=== PATIENT | male | born 1960 | race Caucasian/White ===

== ENCOUNTER 2017-06-01 10:59 | Emergency (ER) | payer BC ==
[2016-09-25 09:26] VITALS: Ht 185.4 cm; Wt 163.3 kg
[~2017-06-01] VITALS: Ht 185.4 cm; Wt 163.3 kg
[~2017-06-01 10:59] MED LIST: ALBI30PE; ALBU2.5V36 NEB; AMLO-98 PO; AMLO-99; AMLO2.5T75 PO; AMOX1TAB9 PO; AZIT-1 PO; AZIT-18 PO; CANA100T; CEP500 PO; DEXL60CA6 PO; FURO-43 PO; GLIM2TAB43; GLIM4TAB49 PO; HYZAAR; INSU100C12 SQ; INSU100V24 SQ; KET10 PO; LANI SQ; LEVO-3 PO; LOR5 PO; LOR75 PO; LORA-809 PO; LOSA-54; LOSA100T62 PO; LOSA25TA51 PO; METF-407 PO; METXR500; METXR500 PO; NEBI10TA4 PO; NEBI20TA4 PO; NOVOLOG SQ; OLME1TAB63 PO; OLME40TA28 PO; ONDA4TAB PO; PER PO; PRED20TA6 PO; PROBIOTIC1 EACH PO; ROS4 PO; SITA100T9 PO; SITA1TAB13; [UNRECOGNIZED DRUG - CODE]
--- NOTE | 2017-06-01 11:08 | ER Report ---
History and Physical Time Seen By MD: 11:08 [facility] CHIEF COMPLAINT: Back pain HISTORY OF PRESENT ILLNESS: 57-year-old male patient presents to emergency room with complaint of back pain. Patient states that he was walking approximately one week ago, slipped on ice and fell backwards landing on his back. He states that he did not have any loss of consciousness, denies any headache. He states since then has been having significant amounts of pain on the left side of his back. States that the pain started to radiate around to the front. He denies having any shortness of breath. He states the pain is improved with anti- inflammatories, he denies any nausea, vomiting or diarrhea. He denies any saddle paresthesia or bowel or bladder dysfunction. REVIEW OF SYSTEMS: Respiratory: No cough, no dyspnea. Cardiovascular: No chest pain, no palpitations. Gastrointestinal: No vomiting, no abdominal pain. Musculoskeletal: As noted above Allergies: Coded Allergies: sitagliptin (Unverified Allergy, Unknown, 08/20/14) Home Meds Active Scripts Cyclobenzaprine Hcl (CYCLOBENZAPRINE HCL) 10 Mg Tablet, 5-10 MG PO TID Y for MUSCLE SPASMS, #30 TAB Prov:EVELIN FAUSTIN [facility] 06/01/17 Ketorolac Tromethamine (KETOROLAC TROMETHAMINE) 10 Mg Tab, 10 MG PO Q6H, #20 TAB Prov:EVELIN FAUSTIN [facility] 06/01/17 Albuterol Sulfate 0.083% (ALBUTEROL SULFATE 0.083%) 2.5 Mg/3 Ml Vial.neb, 2.5 MG NEB Q4HR Y for SHORTNESS OF BREATH for 30 Days, Prov:LUIS PLASENCIA MD 09/27/16 Reported Medications Potassium Chloride (POTASSIUM CHLORIDE) 8 Meq Capsule.er, 8 MEQ PO QDAY 06/01/17 Furosemide (LASIX) 40 Mg Tablet, 1 TAB PO Q8H, TAB 06/01/17 Nebivolol Hcl (BYSTOLIC) 20 Mg Tablet, 20 MG PO DAILY, 09/27/16 Olmesartan/Hydrochlorothiazide (BENICAR HCT 40-25 MG TABLET) 1 Each Tablet, 1 EACH PO DAILY, #90 09/27/16 Insulin Lispro (HUMALOG) 100 Unit/1 Ml Vial, SQ, VIAL Humalog per insulin pump. 09/25/16 Levothyroxine Sodium (LEVOTHYROXINE SODIUM) 100 Mcg Tablet, 100 MCG PO QDAY, TAB 09/24/16 Discontinued Scripts Prednisone (PREDNISONE) 20 Mg Tablet, 10-20 MG PO QDAY, #4 One pill a day for 3 days, then 1/2 pill a day for 2 days Prov:LUIS PLASENCIA MD 09/27/16 Loratadine/Pseudoephedrine (CLARITIN-D 12 HOUR TABLET) 1 Each Tab.er.12h, 1 EACH PO DAILY Y for nasal congestion, #14 Don't take if BP>140/90 Prov:LUIS PLASENCIA MD 09/27/16 Azithromycin (ZITHROMAX) 250 Mg Tablet, 1 TAB PO QDAY, #3 TAB Prov:LUIS PLASENCIA MD 09/27/16 Amoxicillin/Potassium Clav (AMOX TR-K CLV 875-125 MG TAB) 1 Each Tablet, 875 MG PO BIDBS, #14 Prov:LUIS PLASENCIA MD 09/27/16 Past Medical/Surgical History Patient has a past medical history of DVT, hypertension, pneumonia, reflux, cholecystitis, fatty liver, arthritis, back pain, diabetes, hypothyroidism. Patient has surgical history of cholecystectomy, right knee surgery, left knee surgery, left parietal gland, tonsillectomy. Patient has a family medical history of cancer, CAD, diabetes. Reviewed Nurses Notes: Yes Hx Smoking: No Smoking Status: Never Smoker Exposure to Second Hand Smoke?: Yes Hx Alcohol Use: No Constitutional Vital Sign - Last 24 Hours 06/01/17 06/01/17 06/01/17 06/01/17 10:59 11:04 11:05 11:13 Pulse ??? 55 Resp 20 B/P (MAP) 254/124 (167) 254/124 224/100 (141) Pulse Ox 85 O2 Delivery Room Air 06/01/17 06/01/17 06/01/17 06/01/17 11:14 11:29 11:44 11:49 Pulse 53 ? 52 Resp B/P (MAP) 197/96 (129) Pulse Ox 94 92 06/01/17 06/01/17 06/01/17 06/01/17 12:04 12:19 12:26 12:34 Pulse 47 47 49 Resp B/P (MAP) 193/112 (139) Pulse Ox 93 93 84 06/01/17 12:53 Temp 97.6 Physical Exam General Appearance: The patient is alert, has no immediate need for airway protection and no current signs of toxicity. Respiratory: Chest is non tender, lungs are clear to auscultation. Cardiac: regular rate and rhythm Gastrointestinal: Abdomen is soft and non tender, no masses, bowel sounds normal. Musculoskeletal: Neck: Neck is supple and non tender. Extremities have full range of motion and are non tender. Back: There is no bruising noted on the back, patient has tenderness to the paraspinal muscles to the left side of the thoracic spine. Skin: No rashes or lesions. DIFFERENTIAL DIAGNOSIS: After history and physical exam differential diagnosis was considered for back pain including but not limited to muscular pain, herniated disc, spine fracture, intra-abdominal causes and urinary tract infection. Medical Decision Making EKG/Imaging Imaging Exam type: LUMBAR SPINE 4 VIEWS History: fall with back pain Comparison: December 30, 2015. Findings: There are five nonrib-bearing lumbar-type vertebral bodies present. There is no evidence of acute fractures or subluxations in the lumbar spine. Anterior osteophytes are noted at L2-3, L3-4 and L4-5. There are mild hypertrophic changes facet joints bilaterally at L5-S1. Incidentally noted are vascular calcifications in the abdominal aorta. Surgical clips are present in the right upper quadrant of abdomen. IMPRESSION: 1. Spondylotic changes of the lumbar spine as described above although no evidence of acute fractures or subluxations Report Dictated By: Aishwarya Mcwilliams MD at 06/01/2017 12:14 PM Report E-Signed By: Aishwarya Mcwilliams MD at 06/01/2017 12:17 PM Exam type: THORACIC SPINE 3 VIEWS History: fall with back pain Comparison: None. Findings: There is no demonstration of acute fractures or subluxations in the thoracic spine. There are marginal osteophytes noted at multiple levels particularly prominent in the mid to lower thoracic spine. IMPRESSION: 1. Spondylotic changes of the thoracic spine although no gross evidence of acute fractures or subluxations. If symptoms persist MR or CT may be of value Report Dictated By: Aishwarya Mcwilliams MD at 06/01/2017 12:17 PM Report E-Signed By: Aishwarya Mcwilliams MD at 06/01/2017 12:21 PM ED Course/Re-evaluation ED Course Patient was admitted to exam room, history and physical were obtained. Differential diagnoses were considered. I examination patient had no tenderness to the lumbar spine, patient was more in the paraspinal muscles to the left of the thoracic spine. X-rays done of both thoracic and lumbar spines which were negative. Patient received a dose of Norflex here. The patient was admitted to the emergency room patient had blood pressure of 200/120. Blood pressure went down to 195/90. I believe that the patient was having pain that is causing the blood pressure to go up, as the patient is normally hypertensive. With improvement in the discomfort the blood pressure came down which reassures me. I would like him to follow-up with his primary care provider in the next week to discuss his blood pressure. Patient will be given a prescription for Toradol and Flexeril. Discusses patient who verbalized understanding and agreement. Decision to Disposition Date: Jun 01, 2017 Decision to Disposition Time: 12:43 Depart Departure Latest Vital Signs Vital Signs Date Time Temp Pulse Resp B/P (MAP) Pulse Ox O2 Delivery O2 Flow Rate FiO2 06/01/17 12:53 97.6 06/01/17 12:34 49 84 06/01/17 12:26 193/112 (139) 06/01/17 12:19 29 06/01/17 11:05 Room Air Impression: Primary Impression: Back muscle spasm Condition: Improved Disposition: HOME OR SELF-CARE Referrals: SHEELA ABERNATHY (PCP) New Scripts Cyclobenzaprine Hcl (CYCLOBENZAPRINE HCL) 10 Mg Tablet 5-10 MG PO TID Y for MUSCLE SPASMS, #30 TAB Prov: EVELIN FAUSTIN 06/01/17 Ketorolac Tromethamine (KETOROLAC TROMETHAMINE) 10 Mg Tab 10 MG PO Q6H, #20 TAB Prov: EVELIN FAUSTIN 06/01/17 Patient Instructions: Back Pain (ED) Additional Instructions: Limit activity by pain. You may apply heat to the back to help loosen the muscles. Return to the ER if condition worsens. Follow up with Sheela Abernathy in the next week to discuss your blood pressure. If there is no improvement in the back pain follow up with [facility], Dr. De La Garza, for evaluation. Stop taking the Benjamín while taking the Toradol. EVELIN FAUSTIN Jun 01, 2017 11:08
[2017-06-01] MEDS ORDERED: ORPHENADRINE CITR 100 MG TABSR PO ONE (11:15)
[2017-06-01] MEDS ORDERED: FURO40TA35 PO (11:42)
[2017-06-01] MEDS ORDERED: POTA8CAP9 PO (11:43)
--- NOTE | 2017-06-01 12:23 | RADIOLOGY IMAGING REPORT ---
[place] [facility] [place]IENT NAME: Julio C Madrid : 1960 MR: [id number] V: [id number] EXAM DATE: ORDERING PHYSICIAN: EVELIN FAUSTIN TECHNOLOGIST: Location: Patient: Juilo C Madrid : 1960 Visit/Account:[id number] Date of Sevice: 06/01/2017 Exam type: LUMBAR SPINE 4 VIEWS History: fall with back pain Comparison: December 30, 2015. Findings: There are five nonrib-bearing lumbar-type vertebral bodies present. There is no evidence of acute fr actures or subluxations in the lumbar spine. Anterior osteophytes are noted at L2-3, L3-4 and L4-5. There are mild hypertrophic changes facet joints bilaterally at L5-S1. Incidentally noted are vascu lar calcifications in the abdominal aorta. Surgical clips are present in the right upper quadrant of abdomen. IMPRESSION: 1. Spondylotic changes of the lumbar spine as described above although no evidence of acute fracture s or subluxations Report Dictated By: Aishwarya Mcwilliams MD at 06/01/2017 12:14 PM Report E-Signed By: Aishwarya Mcwilliams MD at 06/01/2017 12:17 PM WSN:[email or web address]
[2017-06-01 12:26] VITALS: BP 193/112
--- NOTE | 2017-06-01 12:26 | RADIOLOGY IMAGING REPORT ---
FACILITY: [facility] PATIENT NAME: Julio C Madrid : 1960 MR: [id number] V: [id number] EXAM DATE: ORDERING PHYSICIAN: EVELIN FAUSTIN TECHNOLOGIST: Location: [facility] - [place] Patient: Julio C Madrid : 1960 Visit/Account:[id number] Date of Sevice: 06/01/2017 Exam type: THORACIC SPINE 3 VIEWS History: fall with back pain Comparison: None. Findings: There is no demonstration of acute fractures or subluxations in the thoracic spine. There are margin al osteophytes noted at multiple levels particularly prominent in the mid to lower thoracic spine. IMPRESSION: 1. Spondylotic changes of the thoracic spine although no gross evidence of acute fractures or sublux ations. If symptoms persist MR or CT may be of value Report Dictated By: Aishwarya Mcwilliams MD at 06/01/2017 12:17 PM Report E-Signed By: Aishwarya Mcwilliams MD at 06/01/2017 12:21 PM WSN:[email or web address]
[2017-06-01] MEDS ORDERED: CYCL10TA29 PO (12:42)
[2017-06-01] MEDS ORDERED: KET10 PO (12:42)
== END 2017-06-01 12:56 | disposition home or self-care (01) ==
LOC: ER 11:06
DX: M62.830 Muscle spasm of back (principal)
CPT/HCPCS: 72072; 72120; 99283

== ENCOUNTER → 2017-07-16 | Outpatient (CLI) | payer BC ==
[2016-09-25 09:26] VITALS: BMI 47.5
[~2017-07-16] MED LIST changes: +CYCL10TA29 PO; +FURO40TA35 PO; +POTA8CAP9 PO
--- NOTE | 2017-07-16 23:25 | RADIOLOGY IMAGING REPORT ---
FACILITY: [facility] PATIENT NAME: Julio C Madrid : 1960 MR: [id number] V: [id number] EXAM DATE: ORDERING PHYSICIAN: MARIBEL CHANDLER TECHNOLOGIST: Location: [facility] Patient: Julio C Madrid : 1960 Visit/Account:[id number] Date of Sevice: 07/16/2017 Renal Doppler ultrasound History: Hypertension COMPARISON: None Findings: Per Stat DX, renal artery to aortic ratio greater than 3.5, peak systolic velocity greater than 180 c m/s, and acceleration time greater than 0.07 seconds is suggestive of renal artery stenosis. Exam is technically limited by body habitus. Right kidney: The right kidney measures 13.2 x 6.4 x 6.2 cm and is normal. Resistive index: Upper pole 0.74, midpole 0.74, lower pole 0.59 Proximal renal artery peak systolic velocity: 74 cm/s Mid renal artery peak systolic velocity: 89 cm/s Distal renal artery peak systolic velocity: 27 cm/s Renal artery to aorta ratio: 0.57 Left kidney: The left kidney measures 12.1 x 5.6 x 7 cm and is normal. Resistive index: Upper pole 0.75, midpole 0.74, lower pole 0.77. Proximal renal artery peak systolic velocity: 58 Mid renal artery peak systolic velocity: 54 Distal renal artery peak systolic velocity: 42 Renal artery to aorta ratio: 0.44 Impression: No apparent renal artery stenosis based on velocity criteria. Notably the exam was technically limite d by patient body habitus and portions of the renal arteries may not have been visualized. If there is high clinical concern for renal artery stenosis a CT or MR angiogram could be utilized fo r further evaluation. Report Dictated By: Wilber Montiel MD at 07/16/2017 11:12 PM Report E-Signed By: Wilber Montiel MD at 07/16/2017 11:22 PM WSN:[id number]
== END ==
LOC: US 01:31
PROVIDERS: ATTEND Nurse Practitioner Family
DX: E66.9 Obesity, unspecified (principal); I10 Essential (primary) hypertension
CPT/HCPCS: 93975

== ENCOUNTER → 2017-09-03 | Outpatient (CLI) | payer BC ==
[2016-09-25 09:26] VITALS: BMI 47.5
[2017-09-03 07:24] LABS: PLATELET COUNT, AUTOMATED 267 K/uL (150-450)
== END ==
LOC: LAB 07:03
PROVIDERS: ATTEND Nurse Practitioner Family
DX: E11.65 Type 2 diabetes mellitus with hyperglycemia (principal); I50.9 Heart failure, unspecified; R60.0 Localized edema; R60.1 Generalized edema; I10 Essential (primary) hypertension; R53.81 Other malaise
CPT/HCPCS: 36415; 82040; 82247; 82310; 82374; 82435; 82565; 82947; 83036; 83880; 84075; 84132; 84155; 84295; 84443; 84450; 84460; 84520; 85025

== ENCOUNTER → 2017-10-14 | Outpatient (CLI) | payer BC ==
[2016-09-25 09:26] VITALS: BMI 47.5
== END ==
LOC: LAB 10:24
PROVIDERS: ATTEND Nurse Practitioner Family
DX: R60.0 Localized edema (principal); I10 Essential (primary) hypertension
CPT/HCPCS: 36415; 82040; 82247; 82310; 82374; 82435; 82565; 82947; 84075; 84132; 84155; 84295; 84450; 84460; 84520

== ENCOUNTER → 2017-11-21 | Outpatient (CLI) | payer BC ==
[2016-09-25 09:26] VITALS: BMI 47.5
== END ==
LOC: LAB 15:15
PROVIDERS: ATTEND Nurse Practitioner Family
DX: I10 Essential (primary) hypertension (principal); J44.9 Chronic obstructive pulmonary disease, unspecified; E11.65 Type 2 diabetes mellitus with hyperglycemia; E06.3 Autoimmune thyroiditis; E66.01 Morbid (severe) obesity due to excess calories; R53.81 Other malaise; E87.8 Other disorders of electrolyte and fluid balance, not elsewhere classified
CPT/HCPCS: 36415; 82040; 82247; 82310; 82374; 82435; 82565; 82947; 83880; 84075; 84132; 84155; 84295; 84443; 84450; 84460; 84520; 85027

== ENCOUNTER 2018-01-21 14:50 | Inpatient (IN) | payer BC ==
[~2018-01-21] VITALS: Ht 185.4 cm; Wt 156.0 kg
--- NOTE | 2018-01-21 15:00 | ER Report ---
History and Physical Time Seen By MD: 14:59 HPI/ROS CHIEF COMPLAINT: Edema HISTORY OF PRESENT ILLNESS: 57-year-old male patient presents to emergency room with complaint of edema. Patient states that he has a history of edema. States he's been on Lasix orally for the past couple of years. He states that lately his fluid retention has been going up and down. He states that he has had significant edema for the last 2 weeks. He states that he's been using his Lasix , but states that he's had little to no effect. He denies having any shortness of breath, but states he is unable to lay down to sleep. He states that his been going on for the past 5 years. He denies having any fevers, chills, nausea , vomiting or diarrhea. Patient states she's been taking his medication as prescribed. Patient does have a history of diabetes and bilateral neuropathy. Patient had seen his primary care provider who referred him to the emergency room. REVIEW OF SYSTEMS: Respiratory: Patient has persistent cough, there is no pink frothy sputum. Cardiovascular: No chest pain, no palpitations. Gastrointestinal: No vomiting, no abdominal pain. Musculoskeletal: No back pain. Allergies: Coded Allergies: sitagliptin (Unverified Allergy, Unknown, 08/20/14) Home Meds Active Scripts Albuterol Sulfate 0.083% (ALBUTEROL SULFATE 0.083%) 2.5 Mg/3 Ml Vial.neb, 2.5 MG NEB Q4HR Y for SHORTNESS OF BREATH for 30 Days, Prov:LUIS PLASENCIA MD 09/27/16 Reported Medications Potassium Chloride (Potassium Chloride) 20 Meq Tablet.er, 20 MG PO DAILY 01/21/18 Metolazone (METOLAZONE) 2.5 Mg Tablet, 2.5 MG PO DAILY 01/21/18 Furosemide (LASIX) 40 Mg Tablet, 1 TAB PO Q8H, TAB 06/01/17 Nebivolol Hcl (BYSTOLIC) 20 Mg Tablet, 20 MG PO DAILY, 09/27/16 Insulin Lispro 100 Un/Ml Vial (HUMALOG 100 U/ML VIAL) 100 Unit/1 Ml Vial, SQ, VIAL Humalog per insulin pump. 09/25/16 Levothyroxine Sodium (LEVOTHYROXINE SODIUM) 100 Mcg Tablet, 100 MCG PO QDAY, TAB 09/24/16 Discontinued Reported Medications Potassium Chloride (POTASSIUM CHLORIDE) 8 Meq Capsule.er, 8 MEQ PO QDAY 06/01/17 Olmesartan/Hydrochlorothiazide (BENICAR HCT 40-25 MG TABLET) 1 Each Tablet, 1 EACH PO DAILY, #90 09/27/16 Discontinued Scripts Cyclobenzaprine Hcl (CYCLOBENZAPRINE HCL) 10 Mg Tablet, 5-10 MG PO TID Y for MUSCLE SPASMS, #30 TAB Prov:EVEILN FAUSTIN [facility] 06/01/17 Ketorolac Tromethamine (KETOROLAC TROMETHAMINE) 10 Mg Tab, 10 MG PO Q6H, #20 TAB Prov:EVELIN FAUSTIN [facility] 06/01/17 Past Medical/Surgical History Patient has a past medical history of hypertension, DVT, pneumonia, gastritis, reflux, cholecystitis, fatty liver disease, chronic kidney disease, arthritis, diabetes, hypothyroidism. Patient has surgical history of tonsillectomy, surgery on the left parietal gland, right knee surgery, left knee surgery, cholecystectomy. Patient has a family medical history of cancer, CAD, diabetes. Reviewed Nurses Notes: Yes Hx Smoking: No Smoking Status: Never Smoker Exposure to Second Hand Smoke?: Yes Hx Substance Use Disorder: No Hx Alcohol Use: No Constitutional Vital Sign - Last 24 Hours 01/21/18 01/21/18 01/21/18 01/21/18 14:56 14:59 15:05 15:20 Temp 98.7 Pulse 92 81 Resp 20 28 18 B/P (MAP) 220/107 (144) 220/107 Pulse Ox 93 93 96 01/21/18 01/21/18 01/21/18 01/21/18 15:50 16:05 16:20 16:34 Pulse 74 81 76 Resp 16 25 16 B/P (MAP) 211/112 (145) Pulse Ox 91 95 92 01/21/18 01/21/18 01/21/18 01/21/18 16:35 16:40 16:45 16:50 Pulse 86 76 69 72 Resp 24 13 30 35 01/21/18 01/21/18 16:55 16:57 Pulse 71 Resp 16 B/P (MAP) 204/97 (132) Physical Exam General Appearance: The patient is alert, has no immediate need for airway protection and no current signs of toxicity. Respiratory: Chest is non tender, lungs are clear to auscultation. Cardiac: regular rate and rhythm. Patient is very edematous, legs have 3+ pitting edema. Gastrointestinal: Abdomen is soft and non tender, no masses, bowel sounds normal. Musculoskeletal: Neck: Neck is supple and non tender. Extremities have full range of motion and are non tender. Skin: No rashes or lesions. DIFFERENTIAL DIAGNOSIS: After history and physical exam differential diagnosis was considered for congestive heart failure, renal disease, Medical Decision Making Data Points Result Diagram: 01/21/18 1504 01/21/18 1504 Laboratory Hematology Test 01/21/18 15:01 01/21/18 15:04 01/21/18 15:06 Red Blood Count 5.69 M/uL (4.00-5.60) Mean Corpuscular Volume 85.5 fL (80.0-96.0) Mean Corpuscular Hemoglobin 29.0 pg (26.0-33.0) Mean Corpuscular Hemoglobin Concent 33.9 g/dL (32.0-36.0) Red Cell Distribution Width 14.6 % (11.5-14.5) Mean Platelet Volume 8.6 fL (7.2-11.1) Neutrophils (%) (Auto) 68.0 % (39.4-72.5) Lymphocytes (%) (Auto) 20.7 % (17.6-49.6) Monocytes (%) (Auto) 7.7 % (4.1-12.4) Eosinophils (%) (Auto) 2.6 % (0.4-6.7) Basophils (%) (Auto) 1.0 % (0.3-1.4) Nucleated RBC Relative Count (auto) 0.0 /100WBC Neutrophils # (Auto) 6.7 K/uL (2.0-7.4) Lymphocytes # (Auto) 2.0 K/uL (1.3-3.6) Monocytes # (Auto) 0.8 K/uL (0.3-1.0) Eosinophils # (Auto) 0.3 K/uL (0.0-0.5) Basophils # (Auto) 0.1 K/uL (0.0-0.1) Nucleated RBC Absolute Count (auto) 0.00 K/uL Sodium Level 138 mmol/L (137-145) Potassium Level 3.7 mmol/L (3.5-5.0) Chloride Level 98 mmol/L (98-107) Carbon Dioxide Level 34 mmol/L (22-30) Blood Urea Nitrogen 33 mg/dl (9-21) Creatinine 1.80 mg/dl (0.66-1.25) Glomerular Filtration Rate Calc 39.4 Random Glucose 194 mg/dl (75-110) Calcium Level 8.4 mg/dl (8.4-10.2) Total Bilirubin 0.4 mg/dl (0.2-1.3) Aspartate Amino Transf (AST/SGOT) 20 U/L (0-35) Alanine Aminotransferase (ALT/SGPT) 20 U/L (0-56) Alkaline Phosphatase 73 U/L (0-126) Troponin I < 0.012 ng/ml B-Type Natriuretic Peptide 351 pg/ml (0-100) Total Protein 6.7 g/dl (6.3-8.2) Albumin 3.3 g/dl (3.5-5.0) Urine Color Straw Urine Clarity Clear Urine pH 7.0 pH (4.8-9.5) Urine Specific [place] 1.006 Urine Protein 100 mg/dL (NEGATIVE) Urine Glucose (UA) 150 mg/dL (NEGATIVE) Urine Ketones Negative mg/dL (NEGATIVE) Urine Blood Small (NEGATIVE) Urine Nitrite Negative (NEGATIVE) Urine Bilirubin Negative (NEGATIVE) Urine Urobilinogen Negative mg/dL (0.2-1.9) Urine Leukocyte Esterase Negative (NEGATIVE) Urine RBC 3 /HPF (0-2/HPF) Urine WBC <1 /HPF (0-5/HPF) Urine Squamous Epithelial Cells None /LPF (</=FEW) Urine Bacteria Negative /HPF (NONE-FEW) Urine Mucus None /HPF (NONE-FEW) Chemistry Test 01/21/18 15:01 01/21/18 15:04 01/21/18 15:06 White Blood Count 9.8 k/uL (4.5-11.0) Red Blood Count 5.69 M/uL (4.00-5.60) Hemoglobin 16.5 g/dL (14.0-18.0) Hematocrit 48.7 % (42.0-52.0) Mean Corpuscular Volume 85.5 fL (80.0-96.0) Mean Corpuscular Hemoglobin 29.0 pg (26.0-33.0) Mean Corpuscular Hemoglobin Concent 33.9 g/dL (32.0-36.0) Red Cell Distribution Width 14.6 % (11.5-14.5) Platelet Count 242 K/uL (150-450) Mean Platelet Volume 8.6 fL (7.2-11.1) Neutrophils (%) (Auto) 68.0 % (39.4-72.5) Lymphocytes (%) (Auto) 20.7 % (17.6-49.6) Monocytes (%) (Auto) 7.7 % (4.1-12.4) Eosinophils (%) (Auto) 2.6 % (0.4-6.7) Basophils (%) (Auto) 1.0 % (0.3-1.4) Nucleated RBC Relative Count (auto) 0.0 /100WBC Neutrophils # (Auto) 6.7 K/uL (2.0-7.4) Lymphocytes # (Auto) 2.0 K/uL (1.3-3.6) Monocytes # (Auto) 0.8 K/uL (0.3-1.0) Eosinophils # (Auto) 0.3 K/uL (0.0-0.5) Basophils # (Auto) 0.1 K/uL (0.0-0.1) Nucleated RBC Absolute Count (auto) 0.00 K/uL Glomerular Filtration Rate Calc 39.4 Calcium Level 8.4 mg/dl (8.4-10.2) Total Bilirubin 0.4 mg/dl (0.2-1.3) Aspartate Amino Transf (AST/SGOT) 20 U/L (0-35) Alanine Aminotransferase (ALT/SGPT) 20 U/L (0-56) Alkaline Phosphatase 73 U/L (0-126) Troponin I < 0.012 ng/ml B-Type Natriuretic Peptide 351 pg/ml (0-100) Total Protein 6.7 g/dl (6.3-8.2) Albumin 3.3 g/dl (3.5-5.0) Urine Color Straw Urine Clarity Clear Urine pH 7.0 pH (4.8-9.5) Urine Specific [place] 1.006 Urine Protein 100 mg/dL (NEGATIVE) Urine Glucose (UA) 150 mg/dL (NEGATIVE) Urine Ketones Negative mg/dL (NEGATIVE) Urine Blood Small (NEGATIVE) Urine Nitrite Negative (NEGATIVE) Urine Bilirubin Negative (NEGATIVE) Urine Urobilinogen Negative mg/dL (0.2-1.9) Urine Leukocyte Esterase Negative (NEGATIVE) Urine RBC 3 /HPF (0-2/HPF) Urine WBC <1 /HPF (0-5/HPF) Urine Squamous Epithelial Cells None /LPF (</=FEW) Urine Bacteria Negative /HPF (NONE-FEW) Urine Mucus None /HPF (NONE-FEW) Urinalysis Test 01/21/18 15:06 Urine Color Straw Urine Clarity Clear Urine pH 7.0 pH (4.8-9.5) Urine Specific [place] 1.006 Urine Protein 100 mg/dL (NEGATIVE) Urine Glucose (UA) 150 mg/dL (NEGATIVE) Urine Ketones Negative mg/dL (NEGATIVE) Urine Blood Small (NEGATIVE) Urine Nitrite Negative (NEGATIVE) Urine Bilirubin Negative (NEGATIVE) Urine Urobilinogen Negative mg/dL (0.2-1.9) Urine Leukocyte Esterase Negative (NEGATIVE) Urine RBC 3 /HPF (0-2/HPF) Urine WBC <1 /HPF (0-5/HPF) Urine Squamous Epithelial Cells None /LPF (</=FEW) Urine Bacteria Negative /HPF (NONE-FEW) Urine Mucus None /HPF (NONE-FEW) EKG/Imaging EKG Interpretation 12 lead EKG: Rhythm: normal sinus rhythm [place]: Left axis deviation QRS: Possible left ventricular hypertrophy ST segments: normal Imaging 2 VIEWS CHEST INDICATION: Cough and edema. COMPARISON: 09/24/2016. FINDINGS: Cardiomediastinal silhouette and pulmonary vessels within normal limits. The lungs volumes are mildly decreased causing mild accentuation to the interstitium. No focal areas of consolidation. There is no pneumothorax or pleural effusion. No nodule. Upper abdomen is unremarkable. No acute bony abnormality. IMPRESSION: 1. No acute cardiopulmonary process. Report Dictated By: Mahendra Anthony at 01/21/2018 4:00 PM Report E-Signed By: Mahendra Anthony at 01/21/2018 4:02 PM ED Course/Re-evaluation ED Course Patient was admitted to an exam room, history and physical were obtained. Differential diagnoses were considered. On examination lungs are clear, heart is regular, abdomen is distended and bowel sounds are active. Patient does have 3+ pitting edema to bilateral lower extremities. An IV was started, a CBC, CMP, urinalysis, EKG, chest x-ray, BNP were done. Labs were unremarkable, chest x- ray showed no acute findings, EKG was unremarkable. Patient did have a BNP of 354. That is elevated from the last time was checked, that time he was in the low 200s. Patient received 40 mg of Lasix IV here in the emergency room. I discussed options of going home and trying oral medications or admission. Patient states he is tired of fighting with the water retention would like to be admitted to have that removed. I discussed the case with Dr. Shepherd who did agree to accept the patient for admission. He requested we give him something for his blood pressure and 20 of labetalol was given. Patient will be admitted for CHF. Decision to Disposition Date: Jan 21, 2018 Decision to Disposition Time: 17:20 Depart Departure Latest Vital Signs Vital Signs Date Time Temp Pulse Resp B/P (MAP) Pulse Ox O2 Delivery O2 Flow Rate FiO2 01/21/18 16:57 204/97 (132) 01/21/18 16:55 71 16 01/21/18 16:20 92 01/21/18 14:59 98.7 Impression: Primary Impression: CHF (congestive heart failure) Additional Impression: Bilateral lower extremity edema Condition: Improved Disposition: Admitted from ER Referrals: MARIBEL CHANDLER (PCP) Problem Qualifiers Primary Impression: CHF (congestive heart failure) Heart failure type: unspecified Heart failure chronicity: acute on chronic Qualified Codes: I50.9 - Heart failure, unspecified EVELIN FAUSTIN Jan 21, 2018 14:59
[2018-01-21] MEDS ORDERED: METO2.5T15 PO (15:13)
[2018-01-21] MEDS ORDERED: POTA20TA10 PO (15:19)
[2018-01-21 15:23] LABS: PLATELET COUNT, AUTOMATED 242 K/uL (150-450)
[2018-01-21] MEDS ORDERED: FUROSEMIDE 40 MG/4 ML VIAL IVP ONE (16:05)
--- NOTE | 2018-01-21 16:06 | RADIOLOGY IMAGING REPORT ---
FACILITY: [facility] [place] PATIENT NAME: Julio C Madrid : 1960 MR: [id number] V: [id number] EXAM DATE: ORDERING PHYSICIAN: EVELIN FAUSTIN TECHNOLOGIST: Location: [facility] [place] Patient: Julio C Madrid : 1960 Visit/Account:[id number] Date of Sevice: 01/21/2018 2 VIEWS CHEST INDICATION: Cough and edema. COMPARISON: 09/24/2016. FINDINGS: Cardiomediastinal silhouette and pulmonary vessels within normal limits. The lungs volumes are mildly decreased causing mild accentuation to the interstitium. No focal areas of consolidation. There is no pneumothorax or pleural effusion. No nodule. Upper abdomen is unremarkable. No acute bony abnormality. IMPRESSION: 1. No acute cardiopulmonary process. Report Dictated By: Mahendra Anthony at 01/21/2018 4:00 PM Report E-Signed By: Mahendra Anthony at 01/21/2018 4:02 PM [id number]
--- NOTE | 2018-01-21 16:10 | EKG ---
FACILITY: PATIENT NAME: HUSSAIN PAULSON : [id number] MR: [id number] V: [id number] EXAM DATE: ORDERING PHYSICIAN: EVELIN FAUSTIN TECHNOLOGIST: BELLE Mitchell Reason : DYSPNEA Blood Pressure : / mmHG Vent. Rate : 092 BPM Atrial Rate : 092 BPM P-R Int : 186 ms QRS Dur : 102 ms QT Int : 388 ms P-R-T Axes : 070 -61 116 degrees QTc Int : 479 ms Normal sinus rhythm Possible Left atrial enlargement Left axis deviation Left ventricular hypertrophy T wave abnormality, consider lateral ischemia Prolonged QT Abnormal ECG When compared with ECG of 24-SEP-2016 23:55, No significant change was found Confirmed by Wenceslao Londono ([id number]) on 01/21/2018 5:33:36 PM Referred By: WES Confirmed By:Wenceslao Valera
[2018-01-21] MEDS ORDERED: LABETALOL HCL 100 MG/20ML VIAL IVP ONE (17:05)
[2018-01-21 17:35] VITALS: BP 192/98
[2018-01-21] MEDS ORDERED: ONDANSETRON 4 MG/2 ML VIAL IVP PRN (17:40)
[2018-01-21] MEDS ORDERED: hydrALAZINE HCL 20 MG/ML VIAL IVP PRN ×3 (17:40→20:40)
[2018-01-21] MEDS ORDERED: INFLUENZA VIRUS VAC 0.5 ML SYR IM ONLY ONE (17:40)
[2018-01-21] MEDS ORDERED: ACETAMINOPHEN 325 MG TAB PO PRN (17:40)
[2018-01-21] MEDS ORDERED: ALBUTEROL 2.5 MG/3 ML NEB NEB PRN (17:45)
[2018-01-21] MEDS ORDERED: INS HUM LISPRO 100U/ML (ER ONLY) 10 ML VIAL SQ PRN (17:45)
[2018-01-21 20:02] VITALS: BP 199/90
[2018-01-21] MEDS ORDERED: LABETALOL HCL 100 MG/20ML VIAL IVP PRN (20:40)
[2018-01-21] MEDS ORDERED: amLODIPine BESYL(*) 5 MG TAB PO SCH (21:00)
[2018-01-21] MEDS ORDERED: FUROSEMIDE 40 MG/4 ML VIAL IVP SCH ×2 (21:00)
--- NOTE | 2018-01-21 21:13 | History & Physical ---
History of Present Illness Chief Complaint Edema History of Present Illness 57M with PMHx HFpEF, DM, CKD presented with one month increased weight gain, edema. Noted it got worse over last week. No hospitalizations within last year but did have episode treated by PCP 2 months ago which needed increased diuretic. Denies fluid restriction, or action plan when weight is increased on daily weighing. Reports adherence to diuretic regimen, sodium restriction, daily weights. Per report sometimes urine output just drops despite taking Rx. Noted to have hypertensive urgency on admission and reports difficult to control BP. Denies CP, recent illness. Reports orthopnea, DIALLO, edema. History Problems: (1) CKD (chronic kidney disease) stage 3, GFR 30-59 ml/min (2) Type 2 diabetes mellitus, with long-term current use of insulin (3) Hypothyroidism Status: Chronic (4) HTN (hypertension) Status: Chronic Home Meds Active Scripts Albuterol Sulfate 0.083% (ALBUTEROL SULFATE 0.083%) 2.5 Mg/3 Ml Vial.neb, 2.5 MG NEB Q4HR Y for SHORTNESS OF BREATH for 30 Days, Prov:LUIS PLASENCIA MD 09/27/16 Reported Medications Potassium Chloride (Potassium Chloride) 20 Meq Tablet.er, 20 MG PO DAILY 01/21/18 Metolazone (METOLAZONE) 2.5 Mg Tablet, 2.5 MG PO DAILY 01/21/18 Furosemide (LASIX) 40 Mg Tablet, 1 TAB PO Q8H, TAB 06/01/17 Nebivolol Hcl (BYSTOLIC) 20 Mg Tablet, 20 MG PO DAILY, 09/27/16 Insulin Lispro 100 Un/Ml Vial (HUMALOG 100 U/ML VIAL) 100 Unit/1 Ml Vial, SQ, VIAL Humalog per insulin pump. 09/25/16 Levothyroxine Sodium (LEVOTHYROXINE SODIUM) 100 Mcg Tablet, 100 MCG PO QDAY, TAB 09/24/16 Discontinued Reported Medications Potassium Chloride (POTASSIUM CHLORIDE) 8 Meq Capsule.er, 8 MEQ PO QDAY 06/01/17 Olmesartan/Hydrochlorothiazide (BENICAR HCT 40-25 MG TABLET) 1 Each Tablet, 1 EACH PO DAILY, #90 09/27/16 Discontinued Scripts Cyclobenzaprine Hcl (CYCLOBENZAPRINE HCL) 10 Mg Tablet, 5-10 MG PO TID Y for MUSCLE SPASMS, #30 TAB Prov:EVELIN FAUSTIN [facility] 06/01/17 Ketorolac Tromethamine (KETOROLAC TROMETHAMINE) 10 Mg Tab, 10 MG PO Q6H, #20 TAB Prov:EVELIN FAUSTIN [facility] 06/01/17 Allergies: Coded Allergies: sitagliptin (Unverified Allergy, Unknown, 08/20/14) Patient History: FH: HTN (hypertension) Hx Smoking: No Smoking Status: Never Smoker Exposure to Second Hand Smoke?: Yes Caffeine Intake: Soda Caffeine/Cups Per Day: 1 SODA EVERY OTHER DAY Hx Alcohol Use: No Hx Substance Use Disorder: No Review of Systems All Systems Reviewed/Normal: Yes, Except as Noted Constitutional: Weight Gain Neurological: No Syncope, No Confusion Eyes: No Vision Change ENT: No Hearing Loss Cardiovascular: Other (orthopnea) Respiratory: Shortness of Breath Gastrointestinal: No Nausea, No Vomiting Genitourinary: No Dysuria Musculoskeletal: No Pain Psychiatric: No Depression Exam Vital Signs Vital Signs Date Time Temp Pulse Resp B/P (MAP) Pulse Ox O2 Delivery O2 Flow Rate FiO2 01/21/18 20:09 92 Nasal Cannula 4.0 01/21/18 20:02 98.1 84 18 199/90 (126) General Appearance: Alert, Awake, No Acute Distress, Afebrile Neuro: No Gross deficits Eyes: PERRLA ENT: Normal Neck: No Masses Cardiovascular: Normal Rhythm & Peripheral Pulses Respiratory: No Respiratory Distress (on O2 via NC) Chest: No Tenderness GI: Abd Soft and Non-Tender Lymph: Cervical Nodes Benign Musculoskeletal: No Weakness/Pain Extremities: Warm, Pulses, Perfused, Edema Integumentary: Skin Intact without Lesion / Mass Psych: Appropriate Mood & Affect Medical Decision Making Data Points Result Diagram: 01/21/18 1504 01/21/18 1504 Assessment and Plan Problems: (1) CHF (congestive heart failure) Status: Acute Assessment & Plan: HFpEF with 75% EF and diastolic dysfunction on ECHO 2017. BNP 350Begin 80mg IV Lasix and monitor strict I/O. Diabetic diet, 1500cc fluid restriction, 2gm sodium restriction, daily weights. Adjust diuretic based on response and Cr. (2) Hypertensive urgency Assessment & Plan: BP 210/110's begin PRN hydralazine, labetalol. Scheduled amlodipine and metoprolol. No evidence end organ damage at this time. Target BP 180 overnight with further reduction to follow. (3) CKD (chronic kidney disease) stage 3, GFR 30-59 ml/min Assessment & Plan: B/L Cr 1.8, appears to be at baseline Cr. Renal disease appears to have advanced significantly in last one year likely 2/2 HTN. Monitor with diuresis and adjust based on Cr response to diuresis. (4) Type 2 diabetes mellitus, with long-term current use of insulin Assessment & Plan: Has insulin pump. Will accucheck achs and allow pt to bolus insulin from syringe. Has neuropathy, retinopathy and renal disease related to DM. Last A1c 7.1 in . Venous Thromboembolism Antithrombotics Is Pt On Any Antithrombotics?: Yes Exam Sepsis Risk: No Definite Risk Problem Qualifiers (1) CHF (congestive heart failure): Heart failure type: unspecified Heart failure chronicity: acute on chronic Qualified Codes: I50.9 - Heart failure, unspecified BURKE SANCHEZ DO Jan 21, 2018 21:13
[2018-01-21 21:20] VITALS: BP 180/90
[2018-01-21 23:21] VITALS: BP 168/77
[2018-01-22 03:05] VITALS: BP 158/70
[2018-01-22] MEDS: LEVOTHYROXINE SOD 0.1 MG TAB PO SCH (05:19)
[2018-01-22 07:25] VITALS: BP 162/93
[2018-01-22] MEDS ORDERED: NEBI20TA4 PO (08:12)
[2018-01-22] MEDS ORDERED: NS(*) 0.9% 250 ML BAG 250 ML IVPB PRN (08:55)
[2018-01-22] MEDS ORDERED: FUROSEMIDE 40 MG/4 ML VIAL IVP ONE ×2 (09:10→17:25)
[2018-01-22 09:44] VITALS: Ht 185.4 cm; Wt 156.0 kg
[2018-01-22] MEDS: NEBIVOLOL HCL 5 MG TAB PO SCH ×2 (10:08→21:12)
[2018-01-22] MEDS: LOSARTAN POTASSIUM 50 MG TAB PO SCH (10:08)
[2018-01-22] MEDS: ENOXAPARIN 40 MG/0.4ML SYR SC SCH (10:09)
[2018-01-22] MEDS: FLUTICASONE PROP 0.05% 16 GM SCH (10:10)
--- NOTE | 2018-01-22 11:13 | Hospitalist Progress Note ---
Subjective Progress Notes Subjective He reports some improvements. We discussed previous evaluation for possible sleep apnea. Physical Exam Vital Signs Date Time Temp Pulse Resp B/P (MAP) Pulse Ox O2 Delivery O2 Flow Rate FiO2 01/22/18 07:30 94 Nasal Cannula 3.0 01/22/18 07:25 97.9 76 16 162/93 (116) Intake and Output 01/23/18 07:00 Intake Total 120 ml Output Total 200 ml Balance -80 ml Intake Oral 120 ml Output Urine Total 200 ml # Voids 1 General Appearance: Alert, Awake Cardiovascular: Regular Rate and Rhythm (distant tones) Respiratory: Clear to Auscultation GI: Soft and Non-Tender Extremities: Warm, Perfused, Edema Psych: Alert & Oriented X3 Result Diagram: 01/21/18 1504 01/22/18 0513 Assessment and Plan Problems: (1) CHF (congestive heart failure) Status: Acute Assessment & Plan: Preserved EF at 75% and diastolic dysfunction on ECHO 2016. Will recheck echocardiogram. Review sleep study. Continue oxygen supplementation. Continue diuresis. Work on BP control - Bystolic 20mg BID and add losartan 50mg daily. Watch closely. (2) Hypertensive urgency Assessment & Plan: BPs initially quite elevated (210/110). Now significantly improved. Will continue the Bystolic and losartan as noted above. Watch BPs closely and further modify regimen if needed. (3) CKD (chronic kidney disease) stage 3, GFR 30-59 ml/min Assessment & Plan: Likely some diabetic nephropathy and possibly some hypertensive renal disease. Baseline creatinine has been approximately 1.8 on last several results over past year. Creatinine is 1.7 today. Will continue his treatment as noted above. Watch labs. (4) Type 2 diabetes mellitus, with long-term current use of insulin Assessment & Plan: Has insulin pump. Will continue AC and HS glucose checks and allow patient to bolus insulin. Last HgbA1c 7.1 in 09/2017. Exam Sepsis Risk: No Definite Risk Problem Qualifiers (1) CHF (congestive heart failure): Heart failure type: unspecified Heart failure chronicity: acute on chronic Qualified Codes: I50.9 - Heart failure, unspecified CARA RAMIREZ MD Jan 22, 2018 11:12
[2018-01-22 12:16] VITALS: BP 173/91
[2018-01-22 15:07] VITALS: BP 164/82
--- NOTE | 2018-01-22 16:26 | Medical Nutrition Therapy ---
Nutritional Education Nutrition Education Topic: Diabetic Nutrition, Congested Heart Failure Learning Readiness: Interested Teaching Methods: Discussion, Handout Response to Teaching: Verbalize understanding Teaching Recipient: Patient Nutrition Counseling: Pt is on insulin pump and is knowledgeable about insulin pump management and CHO counting. Reviwed low NA and fluid restiction for CHF dx. Pt verbalized understanding. Nutrition Monitoring & Eval RD Patient Assessment Time: [address] Assessment Type: RD Education Patient Nutrition Acuity: 2-Moderate Follow Up Date: Jan 23, 2018 Nutritional Comment: 01/22. Admitted for edema. Edema 3+ pitting in legs and 1+ pitting in abdominals. Pt has experienced increase in weight due to edema. Pt currently weighs 376lbs, is 73 in, with a BMI of 49.6. Also being treated for CHF. Pt is on diabetic diet and 2g sodium diet. Receiving 1 unit Lispro SS SQ. Pt has insulin pump. Noteable labs include: elevated CO2 31, BUN 32, Creatinine 1.7, and random BG 123. Will monitor pt labs and weight. MR 01/22 Provided MNT for 2gm Na, fluid restricted diet with diabets on insulin pump. VIKTOR SOTO Jan 22, 2018 16:26
[2018-01-22] MEDS: POTASSIUM CHL 10 MEQ TABCR PO SCH (18:00)
[2018-01-22 21:09] VITALS: BP 165/84
[2018-01-23 03:26] VITALS: BP 158/87
[2018-01-23 05:39] LABS: PLATELET COUNT, AUTOMATED 239 K/uL (150-450)
[2018-01-23] MEDS: LEVOTHYROXINE SOD 0.1 MG TAB PO SCH (06:02)
[2018-01-23 07:50] VITALS: BP 152/68
[2018-01-23] MEDS ORDERED: FUROSEMIDE 40 MG/4 ML VIAL IVP ONE (08:40)
[2018-01-23] MEDS: FLUTICASONE PROP 0.05% 16 GM SCH (09:00)
[2018-01-23] MEDS: POTASSIUM CHL 10 MEQ TABCR PO SCH ×2 (09:15→17:00)
[2018-01-23] MEDS: NEBIVOLOL HCL 5 MG TAB PO SCH ×2 (09:15→20:30)
[2018-01-23] MEDS: LOSARTAN POTASSIUM 50 MG TAB PO SCH (09:15)
[2018-01-23] MEDS: ENOXAPARIN 40 MG/0.4ML SYR SC SCH (09:17)
--- NOTE | 2018-01-23 09:35 | Hospitalist Progress Note ---
Subjective Progress Notes Subjective This patient was admitted with heart failure. He had no acute events overnight. Patient Complains of: Cardiovascular: No: Chest Pain Respiratory: No: Shortness of Breath Physical Exam Vital Signs Date Time Temp Pulse Resp B/P (MAP) Pulse Ox O2 Delivery O2 Flow Rate FiO2 01/23/18 07:50 97.6 55 16 152/68 (96) 89 Nasal Cannula 4.0 Intake and Output 01/23/18 07:00 Intake Total 960 ml Output Total 1700 ml Balance -740 ml Intake Oral 960 ml Output Urine Total 1700 ml # Voids 1 Cardiovascular: Other (JVD present.) Respiratory: Other (Bilateral crackles.) Extremities: Edema Result Diagram: 01/23/1852801/23/18528 Assessment and Plan Problems: (1) CHF (congestive heart failure) Status: Acute Assessment & Plan: His echocardiogram has shown a preserved ejection fraction, but did have 3/4 diastolic dysfunction. His daily weights are unreliable, but he does have increased edema from his baseline. We will increase his dose of Lasix today. (2) Hypertensive urgency Assessment & Plan: He is on chronic treatment with Bystolic and losartan. (3) CKD (chronic kidney disease) stage 3, GFR 30-59 ml/min Assessment & Plan: Likely some diabetic nephropathy and possibly some hypertensive renal disease. Baseline creatinine has been approximately 1.8 on last several results over past year. Creatinine is 1.7 today. Will continue his treatment as noted above. Watch labs. (4) Type 2 diabetes mellitus, with long-term current use of insulin Assessment & Plan: Has insulin pump. Will continue AC and HS glucose checks and allow patient to bolus insulin. Last HgbA1c 7.1 in 09/2017. Exam Sepsis Risk: No Definite Risk Problem Qualifiers (1) CHF (congestive heart failure): Heart failure type: diastolic Heart failure chronicity: acute on chronic Qualified Codes: I50.33 - Acute on chronic diastolic (congestive) heart failure EDDIE ESTRELLA DO Jan 23, 2018 09:35
--- NOTE | 2018-01-23 12:34 | Medical Nutrition Therapy ---
Nutrition Anthropometrics Height (Inches): 73.00 Height (Calculated Centimeters: 185.547550 Weight (Pounds): 371 Weight (Calculated Kilograms): 168.339 BMI: 49 [place] Nutrition Score: Adequate [place] Nutrition Risk Score: 20 Dietary Referral Nutrition Risk Factors: Nutrition Risk Comment: None Physical Findings Physical Appearance: Morbidly Obese 40+ Skin Appearance Skin Appearance: Edema Edema Location Modifier: Both Edema Location: abdominal Type of Edema: Degree of Edema: 1+ Gastrointestinal Symptoms GI Symtoms: Tube Present: Bowel Sounds: Recent Bowel Pattern: Stool Characteristics: Nutritional Diagnosis Nutritional Risk Acuity 2: CHF w/Complication Nutritional Risk Acuity 3: Morbid Obesity Nutritional Risk Acuity 4: Good Appetite Past Medical History: Hx of CKD, T2DM, hypothyroidism, and HTN. Nutritional Acuity: 2-Moderate Nutrition Diagnosis: Over-weight/Obesity Nutrition Etiology: Physiological Causes Nutrition Problem/Etiology/Sym: Overweight/Obesity, as related to physiological causes, as evidenced by a diabetic diet, @g sodium diet, and CHF diet. Energy Requirement: 3000 (HB (2600) [place] st jeor (3300)) Protein Requirement: 108 (1.2 2/kcal of ideal body weight) Fluid Requirement: 3000 (1ml/kcal) Diet Type: 2 Gram Sodium (NA), Diabetic, Fluid Restricted Nutrition Intervention: Cont diet as ordered, Encourage intake Additional Diet Restrictions: LIMIT FLUIDS TO 240 per meal Nutrition Monitoring & Eval RD Patient Assessment Time: [address] Assessment Type: RD Assessment Patient Nutrition Acuity: 2-Moderate Follow Up Date: Jan 26, 2018 Nutritional Comment: 01/22. Admitted for edema. Edema 3+ pitting in legs and 1+ pitting in abdominals. Pt has experienced increase in weight due to edema. Pt currently weighs 376lbs, is 73 in, with a BMI of 49.6. Also being treated for CHF. Pt is on diabetic diet and 2g sodium diet. Receiving 1 unit Lispro SS SQ. Pt has insulin pump. Noteable labs include: elevated CO2 31, BUN 32, Creatinine 1.7, and random BG 123. Will monitor pt labs and weight. MR 8 Provided MNT for 2gm Na, fluid restricted diet with diabets on insulin pump. BK 01/23. Pt cont diabetic and 2 g sodium diet, consuming 100% of meals. Pt should recieve around 3000 kcal and 108g of protein each day. Pt still receiving 1 unit Lispro SS SQ. Edema is now 2+ pitting in leg and 1+ pitting in foot. Noteable labs include: elevated BUN 36, Creatinine 1.9, and low Calcium 8, albumin 2.5, and total protein 5.2. Pt BG is now WNL, 85. Will cont to monitor pt intake and labs. MR RIOJASAYSE Jan 23, 2018 12:19
[2018-01-23 15:49] VITALS: BP 172/97
[2018-01-23 18:45] VITALS: BP 176/90
[2018-01-24 01:51] VITALS: BP 158/79
[2018-01-24] MEDS: LEVOTHYROXINE SOD 0.1 MG TAB PO SCH (05:20)
[2018-01-24 09:37] VITALS: BP 148/78
[2018-01-24] MEDS: POTASSIUM CHL 10 MEQ TABCR PO SCH ×2 (09:40→17:10)
[2018-01-24] MEDS: ENOXAPARIN 40 MG/0.4ML SYR SC SCH (09:40)
[2018-01-24] MEDS: LOSARTAN POTASSIUM 50 MG TAB PO SCH (09:40)
[2018-01-24] MEDS: FLUTICASONE PROP 0.05% 16 GM SCH (09:41)
[2018-01-24] MEDS: METOLAZONE 2.5 MG TAB PO SCH (10:04)
[2018-01-24] MEDS: NEBIVOLOL HCL 5 MG TAB PO SCH ×2 (10:04→20:16)
[2018-01-24] MEDS: FUROSEMIDE 40 MG/4 ML VIAL IVP SCH ×3 (10:44→18:24)
--- NOTE | 2018-01-24 11:24 | Hospitalist Progress Note ---
Subjective Progress Notes Subjective 57M admitted for decompensation of HFpEF. No acute events overnight, Cr up slightly, minimal diuresis yesterday. Patient Complains of: Neurological: No: Syncope, Confusion Cardiovascular: No: Chest Pain, Palpitations Respiratory: No: Cough, Congestion Gastrointestinal: No Nausea, No Vomiting Genitourinary: No Dysuria, No Hematuria Musculoskeletal: No: Pain, Sprain Physical Exam Vital Signs Date Time Temp Pulse Resp B/P (MAP) Pulse Ox O2 Delivery O2 Flow Rate FiO2 01/24/18 09:40 Nasal Cannula 3.0 01/24/18 09:37 97.8 55 16 148/78 (101) 91 Intake and Output 01/24/18 07:00 Intake Total 1040 ml Output Total 1275 ml Balance -235 ml Intake Oral 1040 ml Output Urine Total 1275 ml # Voids 3 # Bowel Movements 2 General Appearance: Alert, Awake, No Acute Distress Neuro: No Gross deficits Eyes: PERRLA ENT: Normal Neck: No Masses Cardiovascular: Normal Rhythm & Peripheral Pulses Respiratory: No Respiratory Distress (4L NC) Chest: No Masses GI: Soft and Non-Tender Lymph: Cervical Nodes Benign Musculoskeletal: No Weakness/Pain Extremities: Soft and Non Tender, Warm, Pulses, Edema (moderate to thigh) Integumentary: Skin Intact without Lesion / Mass Psych: Alert & Oriented X3 Result Diagram: 01/23/1852801/24/18516 Assessment and Plan Problems: (1) CHF (congestive heart failure) Status: Acute Assessment & Plan: His echocardiogram has shown a preserved ejection fraction, but did have 3/4 diastolic dysfunction. His daily weights are unreliable, but he does have increased edema from his baseline. Lasix and metolazone ordered. (2) Hypertensive urgency Assessment & Plan: He is on chronic treatment with Bystolic and losartan. (3) CKD (chronic kidney disease) stage 3, GFR 30-59 ml/min Assessment & Plan: Likely some diabetic nephropathy and possibly some hypertensive renal disease. Baseline creatinine has been approximately 1.8 on last several results over past year. Creatinine Slightly elevated despite adequate pressures, likely 2/2 restart of ARB which should be expected. This will be closely monitored as we continue diuresis.. (4) Type 2 diabetes mellitus, with long-term current use of insulin Assessment & Plan: Has insulin pump. Will continue AC and HS glucose checks and allow patient to bolus insulin. Last HgbA1c 7.1 in 09/2017. Patient decreasing basal rate as having hypoglycemia. Exam Sepsis Risk: No Definite Risk Problem Qualifiers (1) CHF (congestive heart failure): Heart failure type: diastolic Heart failure chronicity: acute on chronic Qualified Codes: I50.33 - Acute on chronic diastolic (congestive) heart failure BURKE SANCHEZ DO Jan 24, 2018 11:24
[2018-01-24 15:18] VITALS: BP 188/91
[2018-01-24 19:03] VITALS: BP 159/76
[2018-01-24 23:03] VITALS: BP 162/76
[2018-01-25] MEDS: LEVOTHYROXINE SOD 0.1 MG TAB PO SCH (05:21)
[2018-01-25 07:20] VITALS: BP 139/70
[2018-01-25] MEDS: ENOXAPARIN 40 MG/0.4ML SYR SC SCH (08:17)
[2018-01-25] MEDS: NEBIVOLOL HCL 5 MG TAB PO SCH ×3 (08:17→20:59)
[2018-01-25] MEDS: POTASSIUM CHL 10 MEQ TABCR PO SCH ×2 (08:17→17:04)
[2018-01-25] MEDS: FLUTICASONE PROP 0.05% 16 GM SCH (08:18)
[2018-01-25] MEDS: METOLAZONE 2.5 MG TAB PO SCH (08:18)
[2018-01-25] MEDS: LOSARTAN POTASSIUM 50 MG TAB PO SCH (08:18)
[2018-01-25] MEDS: FUROSEMIDE 80 MG TAB PO SCH ×2 (10:18→12:51)
--- NOTE | 2018-01-25 12:44 | Hospitalist Progress Note ---
Subjective Progress Notes Subjective Patient denies new complaints. Physical Exam Vital Signs Date Time Temp Pulse Resp B/P (MAP) Pulse Ox O2 Delivery O2 Flow Rate FiO2 01/25/18 07:20 97.7 51 13 139/70 (93) 94 High-Flow Nasal Cannula 4.0 Intake and Output 01/25/18 07:00 Intake Total 1620 ml Output Total 3560 ml Balance -1940 ml Intake Oral 1620 ml Output Urine Total 3560 ml # Voids 2 General Appearance: Alert, Awake, No Acute Distress Neuro: No Gross deficits Cardiovascular: Regular Rate and Rhythm Respiratory: Clear to Auscultation GI: Soft and Non-Tender Extremities: Warm, Perfused, Edema (1-2+ pitting edema of both LE.) Integumentary: Skin Intact without Lesion / Mass, Other (Chronic venous stasis changes.) Psych: Appropriate Mood & Affect Result Diagram: 01/23/1852801/25/18518 Assessment and Plan Problems: (1) CHF (congestive heart failure) Status: Acute Assessment & Plan: His echocardiogram has shown a preserved ejection fraction, but did have 3/4 diastolic dysfunction. Unable to assess for pHTN. The patient has had a sleep study and has nocturnal hypoxia but no sleep apnea. He wears 4 L at HS most of the time. His daily weights are unreliable, but he does have incr eased edema from his baseline. This has improved with IV Lasix. Oral Lasix 40mg bid was not helpful at home so will put him on 80mg qam and 80mg at noon. Encouraged him to faithfully wear his O2 every night. He also has metolazone at home which he was NOT taking at admission. His PCP had ordered it but then held it due to his renal function. (2) Hypertensive urgency Assessment & Plan: He is on chronic treatment with Bystolic and losartan/HCTZ. (3) CKD (chronic kidney disease) stage 3, GFR 30-59 ml/min Assessment & Plan: Likely some diabetic nephropathy and possibly some hypertensive renal disease. Baseline creatinine has been approximately 1.8 on last several results over past year. Creatinine Slightly elevated despite adequate pressures, likely 2/2 restart of ARB which should be expected. This will be closely monitored as we continue diuresis. He has an appointment with nephrology already scheduled for next month. (4) Type 2 diabetes mellitus, with long-term current use of insulin Assessment & Plan: Has insulin pump. Will continue AC and HS glucose checks and allow patient to bolus insulin. Last HgbA1c 7.1 in 09/2017. Patient decreasing basal rate as having hypoglycemia. HgA1c 7.5 on today's lab. (5) Nocturnal hypoxia Status: Chronic Assessment & Plan: Sleep study performed in 2017. On O2 at HS. Time Spent on Plan of Care: < 30 min Exam Sepsis Risk: No Definite Risk Problem Qualifiers (1) CHF (congestive heart failure): Heart failure type: diastolic Heart failure chronicity: acute on chronic Qualified Codes: I50.33 - Acute on chronic diastolic (congestive) heart failure CHINYERE RAMIREZ MD Jan 25, 2018 12:44
[2018-01-25] MEDS ORDERED: ALBU8.5H IH (12:46)
[2018-01-25 17:02] VITALS: BP 160/72
[2018-01-25 19:41] VITALS: BP 151/8
[2018-01-25 23:09] VITALS: BP 136/41
[2018-01-26 02:56] VITALS: BP 157/76
[2018-01-26] MEDS: LEVOTHYROXINE SOD 0.1 MG TAB PO SCH (05:49)
[2018-01-26 07:04] VITALS: BP 138/66
[2018-01-26] MEDS: METOLAZONE 2.5 MG TAB PO SCH ×2 (08:07→11:24)
[2018-01-26] MEDS: NEBIVOLOL HCL 5 MG TAB PO SCH (08:58)
[2018-01-26] MEDS: POTASSIUM CHL 10 MEQ TABCR PO SCH (08:58)
[2018-01-26] MEDS: FUROSEMIDE 80 MG TAB PO SCH (08:58)
[2018-01-26] MEDS: FLUTICASONE PROP 0.05% 16 GM SCH (08:58)
[2018-01-26] MEDS: LOSARTAN POTASSIUM 50 MG TAB PO SCH (08:58)
[2018-01-26] MEDS: ENOXAPARIN 40 MG/0.4ML SYR SC SCH (08:59)
[2018-01-26] MEDS ORDERED: LOSA50TA72 PO (09:15)
[2018-01-26] MEDS ORDERED: METO2.5T15 PO (09:15)
[2018-01-26] MEDS ORDERED: NEBI10TA4 PO (09:15)
[2018-01-26] MEDS ORDERED: FURO80TA70 PO (09:15)
--- NOTE | 2018-01-26 09:25 | Hospitalist Depart ---
Discharge Summary Reason for Hosp/Final Diag: (1) Acute on chronic diastolic (congestive) heart failure Hospital Course & Plan: He did present with increased weight gain and edema. His echocardiogram has shown a preserved ejection fraction, but he did have 3/4 diastolic dysfunction. He was treated with multiple dose of IV Lasix, and is no w having sustained response to oral metolazone and Lasix. He was already taking Bystolic, and this dose was decreased. He was started on treatment with Losartan. We also provided education on daily weight monitoring and proper use of his medications. We encourage him to follow up with both nephrology and cardiology. (2) Hypertensive urgency Hospital Course & Plan: He initially had significant elevation of his blood pressure with systolic readings greater than 200mmHg. He did require several doses of IV hydralazine and labetalol. He will discharge on the Bystolic and losartan as above. (3) CKD (chronic kidney disease) stage 3, GFR 30-59 ml/min (4) Type 2 diabetes mellitus, with long-term current use of insulin Hospital Course & Plan: He has insulin pump, which appears to be functioning well. (5) Nocturnal hypoxia Status: Chronic Hospital Course & Plan: He had a sleep study performed in 2017. He is on chronic home oxygen at night, and we have stressed the importance of compliance. (6) Diabetic nephropathy Hospital Course & Plan: His creatinine remained stable with diuresis. It is recommended that he follow up with nephrology. Departure Latest Vital Signs Vital Signs 01/26/18 01/26/18 07:04 09:02 Temp 97.7 Pulse 55 Resp 12 B/P (MAP) 138/66 (90) Pulse Ox 92 O2 Delivery Nasal Cannula O2 Flow Rate 2.0 Weight (Pounds): 355 Weight (Ounces): 5.0 Result Diagram: 01/23/18 0529 01/26/18 0510 Condition: Improved Discharge: Home, Self Care Discharge Instructions Home Meds Active Scripts Nebivolol Hcl (BYSTOLIC) 10 Mg Tab, 10 MG PO BID, #60 TAB Prov:EDDIE ESTRELLA DO 01/26/18 Metolazone (METOLAZONE) 2.5 Mg Tablet, 2.5 MG PO BID, #60 TAB Take 1/2hr prior to fureosemide Prov:EDDIE ESTRELLA DO 01/26/18 Losartan Potassium (LOSARTAN POTASSIUM) 50 Mg Tablet, 50 MG PO QDAY, #30 TAB Prov:EDDIE ESTRELLA DO 01/26/18 Furosemide (FUROSEMIDE) 80 Mg Tablet, 80 MG PO BIDBL, #60 TAB Prov:EDDIE ESTRELLA DO 01/26/18 Albuterol Sulfate 0.083% (ALBUTEROL SULFATE 0.083%) 2.5 Mg/3 Ml Vial.neb, 2.5 MG NEB Q4HR PRN for SHORTNESS OF BREATH for 30 Days, Prov:LUIS PLASENCIA MD 09/27/16 Reported Medications Albuterol Sulfate 90 Mcg/Act (PROAIR HFA 90 MCG/ACT) 8.5 Gm Hfa.aer.ad, 2 PUFF IH Q4-6H, INHALER 01/25/18 Potassium Chloride (Potassium Chloride) 20 Meq Tablet.er, 20 MG PO DAILY 01/21/18 Insulin Lispro 100 Un/Ml Vial (HUMALOG 100 U/ML VIAL) 100 Unit/1 Ml Vial, SQ, VIAL Humalog per insulin pump. 09/25/16 Levothyroxine Sodium (LEVOTHYROXINE SODIUM) 100 Mcg Tablet, 100 MCG PO QDAY, TAB 09/24/16 Discontinued Reported Medications Nebivolol Hcl (BYSTOLIC) 20 Mg Tablet, 40 MG PO DAILY 01/22/18 Metolazone (METOLAZONE) 2.5 Mg Tablet, 2.5 MG PO DAILY Has RX but was NOT taking at home prior to admission. 01/21/18 Furosemide (LASIX) 40 Mg Tablet, 1 TAB PO Q8H, TAB 06/01/17 Nebivolol Hcl (BYSTOLIC) 20 Mg Tablet, 20 MG PO DAILY, 09/27/16 Potassium Chloride (POTASSIUM CHLORIDE) 8 Meq Capsule.er, 8 MEQ PO QDAY 06/01/17 Olmesartan/Hydrochlorothiazide (BENICAR HCT 40-25 MG TABLET) 1 Each Tablet, 1 EACH PO DAILY, #90 09/27/16 Discontinued Scripts Cyclobenzaprine Hcl (CYCLOBENZAPRINE HCL) 10 Mg Tablet, 5-10 MG PO TID PRN for MUSCLE SPASMS, #30 TAB Prov:EVELIN FAUSTIN 06/01/17 Ketorolac Tromethamine (KETOROLAC TROMETHAMINE) 10 Mg Tab, 10 MG PO Q6H, #20 TAB Prov:EVELIN FAUSTIN 06/01/17 Diet: Diabetic, Fluid Restricted Activity: As Tolerated Copies to: MARIBEL CHANDLER ACCESS RN ; Venous Thromboembolism Antithrombotics Is Pt On Any Antithrombotics?: Yes EDDIE ESTRELLA DO Jan 26, 2018 09:25
== END 2018-01-26 11:45 | disposition home or self-care (01) | DRG 291 ==
LOC: ER 14:57 → MED 17:09
PROVIDERS: ADMIT Internal Medicine; ATTEND Internal Medicine
DX: I13.0 Hypertensive heart and chronic kidney disease with heart failure and stage 1 through stage 4 chronic kidney disease, or unspecified chronic kidney disease (principal); I50.33 Acute on chronic diastolic (congestive) heart failure; E11.22 Type 2 diabetes mellitus with diabetic chronic kidney disease; N18.3 Chronic kidney disease, stage 3 (moderate); I16.0 Hypertensive urgency; G47.34 Idiopathic sleep related nonobstructive alveolar hypoventilation; E11.21 Type 2 diabetes mellitus with diabetic nephropathy; K21.9 Gastro-esophageal reflux disease without esophagitis; K76.0 Fatty (change of) liver, not elsewhere classified; E03.9 Hypothyroidism, unspecified; Z96.41 Presence of insulin pump (external) (internal); Z99.81 Dependence on supplemental oxygen; Z79.4 Long term (current) use of insulin; Z88.8 Allergy status to other drugs, medicaments and biological substances; Z86.718 Personal history of other venous thrombosis and embolism; Z90.49 Acquired absence of other specified parts of digestive tract
CPT/HCPCS: 36415; 36416; 71046; 81001; 82040; 82247; 82310; 82374; 82435; 82565; 82947; 82948; 83036; 83735; 83880; 84075; 84132; 84155; 84295; 84443; 84450; 84460; 84484; 84520; 85025; 93005; 93306; 96374; 96375; 99284; J0360; J1650; J1940; J3490

== ENCOUNTER 2018-01-24 16:18 | Outpatient (RCR) | payer BC ==
[2018-01-22 09:44] VITALS: BMI 49.6
[~2018-01-24 16:18] MED LIST changes: -ALBI30PE; +ALBI30PE3; +AMLO-113; -AMLO-99; +METO2.5T15 PO; +POTA20TA10 PO
[2018-01-25] MEDS ORDERED: ALBU8.5H IH (12:46)
[2018-01-26] MEDS ORDERED: METO2.5T15 PO (09:15)
[2018-01-26] MEDS ORDERED: NEBI10TA4 PO (09:15)
[2018-01-26] MEDS ORDERED: LOSA50TA74 PO (09:15)
[2018-01-26] MEDS ORDERED: FURO80TA70 PO (09:15)
--- NOTE | 2018-02-06 10:49 | Transitional Care Management ---
Assessment Visit Type: Telephone Visit Spoke with: Hussain Cardiac: WNL Cardiac Comment: 01/30 reduced edema to legs. Respiratory: WNL Except Respiratory Comment: 01/30 2L during the day 4L at night. Denies SOB. GI: Nutrition: WNL GI Comment: 01/30 Blood sugars well controlled with insulin pump. Wt Gain/Loss: WNL Weight Comment: 01/30 He has lost 7 pounds since discharge. Constipation?: No : WNL Except Comment: 01/30 Taking lasix as prescribed. Musculoskeletal, Exercise: WNL Except Musculoskeletal, Excercise Com: 01/30 Low endurance with activity. Mobility/Falls: WNL Integumentary: WNL Feeling of Well Being: WN Except Feeling of Well Being Comment: 01/30 Can't return to work until after his appt with cardiology on 02/11. He is anxious to return to work. Socialization: WN Socialization Comment: 01/30 Lives at home with his , and has an active network of friends Pain/Management: WNL Scheduled Follow-Up with Provi: Yes (01/30 sees cardiology on 02/11 and nephrology on 02/14) Following Discharge Instructio: Yes TCM Discharge Criteria Medication Knowledge: 01/30 Discharge medications reviewed. Disease Management/Concern/Wha: 01/30 red and yellow CHF flags reviewed. Transitional Care Comment: 01/22 gave CHF and diabetic teach. 01/23 I asked him if he had any questions, he did not. I began to cover the importance of daily weights and fluid restrictions. "I don't have any questions", he stated again. 01/24 He was receptive today. We discussed CHF, fluid restriction, daily weights, diueretics, health goals. He consents to the program. 01/30 He feels well, denies SOB, but is anxious to return to work. F/U with cardiology and nephrology scheduled. HUSSAIN TAYLOR Feb 06, 2018 10:49
--- NOTE | 2018-02-16 10:19 | Transitional Care Management ---
Assessment Cardiac: WNL Cardiac Comment: 01/30 reduced edema to legs. Respiratory: WNL Except Respiratory Comment: 01/30 2L during the day 4L at night. Denies SOB. GI: Nutrition: WNL GI Comment: 01/30 Blood sugars well controlled with insulin pump. Wt Gain/Loss: WNL Weight Comment: 01/30 He has lost 7 pounds since discharge. Constipation?: No : WNL Except Comment: 01/30 Taking lasix as prescribed. Musculoskeletal, Exercise: WNL Except Musculoskeletal, Excercise Com: 01/30 Low endurance with activity. Mobility/Falls: WNL Integumentary: WNL Feeling of Well Being: WN Except Feeling of Well Being Comment: 01/30 Can't return to work until after his appt with cardiology on 02/11. He is anxious to return to work. Socialization: WN Socialization Comment: 01/30 Lives at home with his , and has an active network of friends Pain/Management: WN Scheduled Follow-Up with Provi: Yes (01/30 sees cardiology on 02/11 and nephro logy on 02/14) Following Discharge Instructio: Yes TCM Discharge Criteria Medication Knowledge: 01/30 Discharge medications reviewed. Disease Management/Concern/Wha: 01/30 red and yellow CHF flags reviewed. Transitional Care Comment: 01/22 gave CHF and diabetic teach. 01/23 I asked him if he had any questions, he did not. I began to cover the importance of daily weights and fluid restrictions. "I don't have any questions", he stated again. 01/24 He was receptive today. We discussed CHF, fluid restriction, daily weights, diueretics, health goals. He consents to the program. 01/30 He feels well, denies SOB, but is anxious to return to work. F/U with cardiology and nephrology scheduled. 02/06 Left message. 02/16 Left message. HUSSAIN TAYLOR Feb 16, 2018 10:19
--- NOTE | 2018-03-16 13:31 | Transitional Care Management ---
Assessment Cardiac: WNL Cardiac Comment: 01/30 reduced edema to legs. Respiratory: WNL Except Respiratory Comment: 01/30 2L during the day 4L at night. Denies SOB. GI: Nutrition: WNL GI Comment: 01/30 Blood sugars well controlled with insulin pump. Wt Gain/Loss: WNL Weight Comment: 01/30 He has lost 7 pounds since discharge. Constipation?: No : WNL Except Comment: 01/30 Taking lasix as prescribed. Musculoskeletal, Exercise: WNL Except Musculoskeletal, Excercise Com: 01/30 Low endurance with activity. Mobility/Falls: WNL Integumentary: WNL Feeling of Well Being: WNL Except Feeling of Well Being Comment: 01/30 Can't return to work until after his appt with cardiology on 02/11. He is anxious to return to work. Socialization: WN Socialization Comment: 01/30 Lives at home with his , and has an active network of friends Pain/Management: WN Scheduled Follow-Up with Provi: Yes (01/30 sees cardiology on 02/11 and nephro logy on 02/14) Following Discharge Instructio: Yes TCM Discharge Criteria Medication Knowledge: 01/30 Discharge medications reviewed. Disease Management/Concern/Wha: 01/30 red and yellow CHF flags reviewed. Transitional Care Comment: 01/22 gave CHF and diabetic teach. 01/23 I asked him if he had any questions, he did not. I began to cover the importance of daily weights and fluid restrictions. "I don't have any questions", he stated again. 01/24 He was receptive today. We discussed CHF, fluid restriction, daily weights, diueretics, health goals. He consents to the program. 01/30 He feels well, denies SOB, but is anxious to return to work. F/U with cardiology and nephrology scheduled. 02/06 Left message. 02/16 Left message. 02/22 Left message, Discharge. HUSSAIN TAYLOR Mar 16, 2018 13:31
== END 2018-03-18 09:10 | disposition home or self-care (01) ==
LOC: TCM 16:18
PROVIDERS: ATTEND Nurse Practitioner
DX: Z02.9 Encounter for administrative examinations, unspecified (principal)

== ENCOUNTER → 2018-02-14 | Outpatient (CLI) | payer BC ==
[2018-01-22 09:44] VITALS: BMI 49.6
[~2018-02-14] MED LIST changes: +ALBU8.5H IH; +FURO80TA70 PO; +LOSA50TA74 PO
[2018-02-14 13:04] LABS: PLATELET COUNT, AUTOMATED 217 K/uL (150-450)
--- NOTE | 2018-02-14 15:15 | RADIOLOGY IMAGING REPORT ---
FACILITY: [facility] - [place] PATIENT NAME: Julio C Madrid : 1960 MR: [id number] V: [id number] EXAM DATE: ORDERING PHYSICIAN: SUSAN ANDERSEN TECHNOLOGIST: Location: [facility] - [place] Patient: Julio C Madrid : 1960 Visit/Account:[id number] Date of Sevice: 02/14/2018 KIDNEYS EXAMINATION: Renal ultrasound. History: Chronic kidney disease COMPARISON STUDIES: July 16, 2017 FINDINGS: Kidneys: Right kidney- 12.3 x 5.9 x 7.7 cm Left kidney- 13.3 x 4.7 x 5.7 cm Uniform and symmetric blood flow in each kidney by Doppler ultrasound. Hydronephrosis: none Resistive index on the right 0.62 and on the left 0.66 Bladder: Urinary bladder prevoid volume 161 mL. Post for residual 23 mL. Bilateral ureteral jets ar e present. Abdominal aorta and IVC: Aorta and IVC are patent by Doppler ultrasound. IMPRESSION: Unremarkable renal ultrasound Report Dictated By: Aishwarya Mcwilliams MD at 02/14/2018 3:09 PM Report E-Signed By: Aishwarya Mcwilliams MD at 02/14/2018 3:11 PM WSN:[id number]
== END ==
LOC: LAB 12:12
PROVIDERS: ATTEND Internal Medicine Nephrology
DX: Z13.9 Encounter for screening, unspecified (principal); N18.3 Chronic kidney disease, stage 3 (moderate); R80.1 Persistent proteinuria, unspecified
CPT/HCPCS: 36415; 76705; 82040; 82310; 82374; 82435; 82550; 82565; 82570; 82947; 83883; 83970; 84100; 84132; 84153; 84156; 84160; 84165; 84295; 84520; 85025

== ENCOUNTER 2018-03-04 01:11 | Outpatient (RCR) | payer BC ==
[2018-01-22 09:44] VITALS: BMI 49.6
[2018-03-05] MEDS ORDERED: REGADENOSON 0.4 MG/5 ML SYR ONE (11:18)
--- NOTE | 2018-03-05 14:59 | RT STRESS TEST REPORT ---
FACILITY: [facility] PATIENT NAME: HUSSAIN PAULSON : [id number] MR: [id number]: [id number] EXAM DATE: ORDERING PHYSICIAN: MARIE NÚÑEZ TECHNOLOGIST: Gonzalo Acquisition Time: 2018-03-05 14:26:46 Total Exercise Time: 00:01:00 Test Indications: chf Medications: SEE NUCLEAR MED SHEET Protocol: LEXISCAN Max HR: 082 BPM 50% of Pred: 164 BPM Max BP: 157/063 mmHG Max Work Load: 1.0 METS Stress was performed using Lexiscan protocol. He experienced some chest tightness and dyspnea with th e infusion. This resolved fairly quickly into recovery. No significant EKG changes were noted. Recovery was uneventful. Await Myoview images. Confirmed by CARA RAMIREZ ([id number]) on 03/05/2018 2:59:24 PM Referred By: Overread By: CARA RAMIREZ
== END 2018-03-05 18:00 | disposition home or self-care (01) ==
LOC: NUC 01:11 → EDSTATUS 03-05 14:00 → NUC 03-05 18:00
PROVIDERS: ATTEND Internal Medicine Cardiovascular Disease
DX: I50.9 Heart failure, unspecified (principal); N28.9 Disorder of kidney and ureter, unspecified; I10 Essential (primary) hypertension
CPT/HCPCS: 78452; 93017; A9500; J2785

== ENCOUNTER → 2018-03-08 | Outpatient (CLI) | payer BC ==
[2018-01-22 09:44] VITALS: BMI 49.6
[2018-03-08 08:36] LABS: PLATELET COUNT, AUTOMATED 197 K/uL (150-450)
== END ==
LOC: LAB 08:16
PROVIDERS: ATTEND Nurse Practitioner Family
DX: Q28.2 Arteriovenous malformation of cerebral vessels (principal); I50.9 Heart failure, unspecified; N18.3 Chronic kidney disease, stage 3 (moderate); J44.9 Chronic obstructive pulmonary disease, unspecified; R60.1 Generalized edema; I10 Essential (primary) hypertension; E11.65 Type 2 diabetes mellitus with hyperglycemia; K52.9 Noninfective gastroenteritis and colitis, unspecified; R53.81 Other malaise; E55.9 Vitamin D deficiency, unspecified; D51.0 Vitamin B12 deficiency anemia due to intrinsic factor deficiency
CPT/HCPCS: 36415; 82040; 82247; 82274; 82310; 82374; 82435; 82465; 82565; 82607; 82947; 83036; 83718; 83880; 84075; 84132; 84155; 84295; 84443; 84450; 84460; 84478; 84520; 85025; 87045; 87177; 87324; 87449

== ENCOUNTER → 2018-05-02 | Outpatient (CLI) | payer BC ==
[2018-01-22 09:44] VITALS: BMI 49.6
== END ==
LOC: LAB 08:09
PROVIDERS: ATTEND Nurse Practitioner Family
DX: E11.9 Type 2 diabetes mellitus without complications (principal); N18.3 Chronic kidney disease, stage 3 (moderate); Z79.4 Long term (current) use of insulin
CPT/HCPCS: 36415; 82040; 82247; 82310; 82374; 82435; 82565; 82947; 83036; 84075; 84132; 84155; 84295; 84450; 84460; 84520

== ENCOUNTER → 2018-05-16 | Outpatient (CLI) | payer BC ==
[2018-01-22 09:44] VITALS: BMI 49.6
[~2018-05-16] MED LIST changes: -LOSA50TA74 PO; +LOSA50TA80 PO
== END ==
LOC: LAB 10:04
PROVIDERS: ATTEND Internal Medicine Nephrology
DX: N18.3 Chronic kidney disease, stage 3 (moderate) (principal); R60.9 Edema, unspecified
CPT/HCPCS: 36415; 82310; 82374; 82435; 82565; 82947; 83735; 84132; 84295; 84520

== ENCOUNTER → 2018-07-04 | Outpatient (CLI) | payer BC ==
[2018-01-22 09:44] VITALS: BMI 49.6
[~2018-07-04] MED LIST changes: -AMLO-113; +AMLO-127
== END ==
LOC: LAB 08:09
PROVIDERS: ATTEND Nurse Practitioner Family
DX: E78.00 Pure hypercholesterolemia, unspecified (principal); R53.81 Other malaise; E87.6 Hypokalemia; R73.01 Impaired fasting glucose
CPT/HCPCS: 36415; 82040; 82247; 82310; 82374; 82435; 82465; 82565; 82947; 83036; 83718; 83880; 84075; 84132; 84155; 84295; 84443; 84450; 84460; 84478; 84520; 85027

== ENCOUNTER → 2018-09-20 | Outpatient (CLI) | payer BC ==
[2018-01-22 09:44] VITALS: BMI 49.6
[2018-09-20 08:24] LABS: PLATELET COUNT, AUTOMATED 202 K/uL (150-450)
== END ==
LOC: LAB 07:54
PROVIDERS: ATTEND Nurse Practitioner Family
DX: E78.00 Pure hypercholesterolemia, unspecified (principal); R53.81 Other malaise; R73.01 Impaired fasting glucose; E87.8 Other disorders of electrolyte and fluid balance, not elsewhere classified
CPT/HCPCS: 36415; 82040; 82247; 82310; 82374; 82435; 82465; 82565; 82947; 83036; 83718; 83880; 84075; 84132; 84155; 84295; 84443; 84450; 84460; 84478; 84520; 85025